=== PATIENT | female | born 1975 | race Caucasian/White ===

== ENCOUNTER 2016-11-10 17:14 | Emergency (ER) | payer MEDICAID, OTHER ==
[~2016-11-10] VITALS: Ht 162.6 cm; Wt 63.3 kg
[2016-11-10 17:26] VITALS: BP 104/67
== END 2016-11-10 17:55 | disposition home or self-care (01) ==
LOC: ED 17:45
DX: K02.9 Dental caries, unspecified (principal); E11.9 Type 2 diabetes mellitus without complications; K08.89 Other specified disorders of teeth and supporting structures
CPT/HCPCS: 99283